=== PATIENT | female | born 1960 | race African-American/Black ===

== ENCOUNTER 2017-08-27 11:16 | Emergency (ER) | payer MEDICAID ==
[~2017-08-27] VITALS: Ht 160 cm; Wt 99.8 kg
[2017-08-27] MEDS ORDERED: Dexamethasone 4mg/ml vial IM ONE (12:15)
[2017-08-27] MEDS ORDERED: HYDROXYZINE HCL25 M1 PO (13:41)
[2017-08-27] MEDS ORDERED: PREDNISONE20 MG ORAL (13:41)
[2017-08-27] MEDS ORDERED: PEPCID AC20 M2 PO (13:41)
--- NOTE | 2017-08-27 13:42 | Emergency Room Report ---
History of Present Illness General Chief Complaint: Allergies Present Illness HPI 57 y/o female complains of generalized rash and itching since last night. Patient was brought in by evidence for rash and itching disorder last night. Patient is unaware of anything that provoked her symptoms. 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 Denies taking any meds or fruits prior to the onset of symptoms. Patient took 150 mg of Benadryl last night without improvement, she also tried topical steroids without improvement. He should then called for an ambulance and on scene was given epinephrine and Benadryl which the patient states is without improvement of symptoms. Patient denies any angioedema, shortness of breath, chest pain, wheezing, throat swelling, nausea, sweating, abdominal pain, headache. Allergies: Uncoded Allergies: FRUITS (Allergy, Unknown, 08/27/17) NUTS (Allergy, Unknown, 08/27/17) Patient History Past Medical History: see triage record Pertinent Family History: none Reviewed Nursing Documentation: PMH: Agreed, PSxH: Agreed Review of Systems All Other Systems: negative except mentioned in HPI Physical Exam Vital Signs Date Time Temp Pulse Resp B/P (MAP) Pulse Ox O2 Delivery O2 Flow Rate FiO2 08/27/17 11:12 98.1 89 17 168/84 99 Room Air Sp02 EP Interpretation: reviewed, normal General Appearance: no apparent distress, alert, GCS 15, non-toxic Head: normocephalic Eyes: bilateral eye normal inspection, bilateral eye PERRL ENT: hearing grossly normal, normal pharynx, no angioedema, normal voice, TMs + canals normal, uvula midline Neck: full range of motion, supple/symm/no masses Respiratory: chest non-tender, lungs clear, normal breath sounds, speaking full sentences Cardiovascular #1: regular rate, rhythm, no edema Musculoskeletal: digits/nails normal, gait/station normal Neurologic: alert, oriented x3, responsive, motor strength/tone normal, sensory intact, speech normal Psychiatric: judgement/insight normal, memory normal, mood/affect normal, no suicidal/homicidal ideation Skin: warm/dry, well hydrated, normal turgor, rash - generalized urticarial rash Medical Decision Making PA Attestation Dr. Velazquez my supervising physician with whom patient management has been discussed with. Diagnostic Impression: Primary Impression: Allergic urticaria ER Course Pt. presents to the ED c/o rash Ddx considered but are not limited to dermatitis, insect sting, viral exanthem, herpez zoster, cellulitis, abscess Vital signs: are WNL, pt. is afebrile H&PE are most consistent with allergic urticaria ORDERS: none required at this time, the diagnosis is clinical ED INTERVENTIONS: Patient given 8 decadron and was observed. DISCHARGE: Patient has no signs of anaphylaxis, SOB, or angioedema. Patient is sleeping comfortably in the bed on 2 reexaminations. At this time pt. is stable for d/c to home. Will provide printed patient care instructions, and any necessary prescriptions. Care plan and follow up instructions have been discussed with the patient prior to discharge. Last Vital Signs Date Time Temp Pulse Resp B/P (MAP) Pulse Ox O2 Delivery O2 Flow Rate FiO2 08/27/17 11:12 98.1 89 17 168/84 99 Room Air Disposition: HOME, SELF-CARE Condition: Stable Scripts Hydroxyzine Hcl (HYDROXYZINE HCL) 25 Mg Tablet 25 MG PO Q6HR for 10 Days, #40 TAB Prov: SABRY,TAMEEM P.A. 08/27/17 Famotidine (PEPCID AC) 20 Mg Tablet 20 MG PO ONCE A WEEK for 10 Days, #10 TAB Prov: SABRY,TAMEEM P.A. 08/27/17 Prednisone* (PREDNISONE*) 20 Mg Tablet 40 MG ORAL DAILY for 5 Days, #10 TAB Prov: SABRY,TAMEEM P.A. 08/27/17 Referrals: NOT CHOSEN [facility]/MD,REFERRING (PCP) Patient Instructions: Rash Additional Instructions: Take medications as directed. Follow up with PCP within 5-7 days. Advised patient to avoid using or touching whatever might have caused their rash. Patient is to protect their skin from anything that might irritate it or cause an allergy (ie wearing gloves if they need to work with harsh soaps). Advised patient to try using soothing skin products to help with the itching and discomfort which include: unscented, thick moisturizing cream, anti-itch lotion or cream, and a special kind of bath called an oatmeal bath. Advised patient to go to the ER if they experience severe symptoms like pain, widespread swelling, and large blisters, oozing, or crusting of the skin. Patient is to return sooner if their rash does not go away within 2 weeks, or if it gets worse. The most common symptoms of anaphylaxis are hives (urticaria) and swelling of the skin (angioedema), which occur in 80 to 90 percent of reactions. Respiratory symptoms occur in about 70 percent of reactions, and are especially common in people who also have asthma or another chronic respiratory disease. Extremely low blood pressure causing lightheadedness, dizziness, blurred vision, or loss of consciousness (passing out) occurs in up to about 70 percent of reactions. If you experience any of these symptoms which include SOB and throat swelling, please use your Epi-Pen as directed and call 911. FABRICE HOPE Aug 27, 2017 13:42
[2017-08-27 14:05] VITALS: BP 151/80
== END 2017-08-27 14:05 | disposition home or self-care (01) ==
LOC: EDBD 11:16 → EMR 13:11
DX: L50.0 Allergic urticaria (principal); Z91.018 Allergy to other foods
CPT/HCPCS: 96372; 99284; J1100